=== PATIENT | female | born 1985 | race Caucasian/White ===

== ENCOUNTER → 2017-07-06 | Outpatient (CLI) | payer OTHER ==
[~2017-07-06] MED LIST: KFL/250 PO
[2017-07-06 14:20] LABS: MANUAL MICROSCOPIC REQUIRED? NO; REVIEW REQ? NO; URINE APPEARANCE CLEAR (CLEAR); URINE BILIRUBIN NEG (NEG); URINE COLOR YELLOW; URINE EPITHELIAL CELL AUTO >30 /lpf (0-5); URINE NITRITE NEG (NEG); URINE PH 5.5 (4.5-7.5); URINE SPECIFIC GRAVITY 1.024 (1.000-1.030); UROBILINOGEN NEG (NEG)
== END | disposition home or self-care (01) ==
LOC: C.LABSPEC 13:37 → MERGE 13:37
PROVIDERS: ATTEND Obstetrics & Gynecology
DX: Z34.81 Encounter for supervision of other normal pregnancy, first trimester (principal)

== ENCOUNTER → 2017-07-08 | Outpatient (CLI) | payer OTHER ==
[2017-07-08 10:11] LABS: BASO % 0.3 %; BASO ABS # 0.02 K/uL (0-0.2); COMPLETE YES; EOS % 1.3 %; HEMATOCRIT 37.2 % (37-47); IG% 0.4 %; LYMPH % 24.2 %; MEAN CELL VOLUME 88.2 fL (80-100); MEAN CORPUSCULAR HGB CONC 35.2 g/dl (32-36); MEAN PLATELET VOLUME 9.1 fL (7.4-10.4); MONO % 8.8 %; PLATELET COUNT 300 K/uL (130-400); RED BLOOD COUNT 4.22 M/uL (4.2-5.4); WHITE BLOOD COUNT 7.85 K/uL (4.8-10.8)
== END | disposition home or self-care (01) ==
LOC: MERGE 09:01 → C.LAB1850 09:01
PROVIDERS: ATTEND Obstetrics & Gynecology
DX: Z34.81 Encounter for supervision of other normal pregnancy, first trimester (principal); Z3A.00 Weeks of gestation of pregnancy not specified

== ENCOUNTER → 2017-08-10 | Outpatient (CLI) | payer OTHER ==
[2017-08-10 12:03] LABS: GTGD 50 Grams
== END | disposition home or self-care (01) ==
LOC: C.LAB1850 09:11
PROVIDERS: ATTEND Obstetrics & Gynecology
DX: Z34.82 Encounter for supervision of other normal pregnancy, second trimester (principal)

== ENCOUNTER → 2017-11-01 | Outpatient (CLI) | payer BC, OTHER ==
[2017-11-01 18:13] LABS: HEMATOCRIT 37.1 % (37-47); HEMOGLOBIN 12.9 g/dL (12.0-16.0)
== END | disposition home or self-care (01) ==
LOC: C.LAB1850 17:45
PROVIDERS: ATTEND Obstetrics & Gynecology
DX: Z34.83 Encounter for supervision of other normal pregnancy, third trimester (principal)

== ENCOUNTER → 2017-11-01 | Outpatient (CLI) | payer BC | END | disposition home or self-care (01) | LOC: C.LABSPEC 18:02 | PROVIDERS: ATTEND Obstetrics & Gynecology | DX: Z34.83 Encounter for supervision of other normal pregnancy, third trimester (principal) ==

== ENCOUNTER → 2017-12-30 | Outpatient (CLI) | payer BC | END | disposition home or self-care (01) | LOC: C.LABSPEC 17:27 | PROVIDERS: ATTEND Obstetrics & Gynecology | DX: Z34.83 Encounter for supervision of other normal pregnancy, third trimester (principal) ==

== ENCOUNTER 2018-01-28 16:25 | Inpatient (IN) | payer BC ==
[~2018-01-28] VITALS: Ht 165.1 cm; Wt 94.5 kg
[2018-01-28] MEDS ORDERED: LACTATED RINGER'S 1000ML 1,000 ML IV SCH (16:40)
[2018-01-28] MEDS ORDERED: LACTATED RINGER'S 1000ML 1,000 ML IV PRN (16:40)
[2018-01-28] MEDS ORDERED: BUPIVACAINE 0.25% 30 ML VIAL ONE (16:54)
[2018-01-28] MEDS ORDERED: EpHEDrine SULFATE INJ 50 MG/ML AMP ONE (16:54)
[2018-01-28] MEDS ORDERED: FENTANYL 2MCG/ML ROPIV 1.25MG/ML 100ML BAG ONE (16:55)
[2018-01-28] MEDS ORDERED: FENTANYL CITRATE INJ 50 MCG/1 ML 2 ML VIAL ONE (16:55)
[2018-01-28 17:00] LABS: HEMATOCRIT 34.4 % (37-47); MEAN CORPUSCULAR HEMOGLOBIN 32.1 pg (25-34); MEAN CORPUSCULAR HGB CONC 34.9 g/dl (32-36); MEAN PLATELET VOLUME 10.2 fL (7.4-10.4); PLATELET COUNT 251 K/uL (130-400); RED CELL DISTRIBUTION WIDTH SD 40.6 fL (36.4-46.3); WHITE BLOOD COUNT 10.16 K/uL (4.8-10.8)
[2018-01-28 17:10] VITALS: Ht 165.1 cm; Wt 94.5 kg
[2018-01-28] MEDS ORDERED: PRENTAB26 PO (17:10)
[2018-01-28] MEDS ORDERED: LACTATED RINGER'S 1000ML 500 ML IV PRN (17:46)
[2018-01-28] MEDS ORDERED: NALOXONE HCL INJ 1 MG in SODIUM CHLORIDE 0.9% 1000ML 1,000 ML IV PRN (17:46)
[2018-01-28] MEDS ORDERED: DiphenhydrAMINE HCL 50 MG/ML VIAL IV PRN (18:00)
[2018-01-28] MEDS ORDERED: FENTANYL 2MCG/ML ROPIV 1.25MG/ML 100ML BAG EPI PRN (18:00)
[2018-01-28] MEDS ORDERED: NALOXONE HCL INJ 0.4 MG/1 ML VIAL/CARP IV PRN (18:00)
[2018-01-28] MEDS ORDERED: NALBUPHINE HCL INJ 10 MG/ML AMP IV PRN (18:00)
[2018-01-28] MEDS ORDERED: ONDANSETRON INJ 2 MG/ML 2 ML VIAL IV PRN (18:00)
[2018-01-28] MEDS ORDERED: EpHEDrine SULFATE INJ 50 MG/ML AMP IV PRN (18:00)
[2018-01-28] MEDS ORDERED: OXYTOCIN 30 UNITS/500ML NSS IV ONE (18:56)
[2018-01-28] MEDS ORDERED: OXYTOCIN INJ 20 UNITS in LACTATED RINGER'S 1000ML 1,000 ML IV SCH (19:11)
[2018-01-28] MEDS ORDERED: OXYCODONE/ACETAMINOPHEN 5-325 TAB PO PRN (19:15)
[2018-01-28] MEDS ORDERED: BENZOCAINE 20% AER SPR 82.5 GM CAN EXT PRN (19:15)
[2018-01-28] MEDS ORDERED: OXYTOCIN 30 UNITS/500ML NSS IV PRN (19:15)
[2018-01-28] MEDS ORDERED: DIPHTHERIA/TETANUS/PERTUSSIS 0.5 ML SYR/VIAL IM. ONE (19:15)
[2018-01-28] MEDS ORDERED: SUPERCREAM 0.870 % 15GM JAR EXT PRN (19:15)
[2018-01-28] MEDS ORDERED: ACETAMINOPHEN 325 MG TAB PO PRN (19:15)
[2018-01-28] MEDS ORDERED: HYDROCORTISONE ACETATE 25 MG SUPP PR PRN (19:15)
[2018-01-28] MEDS ORDERED: LANOLIN OINT EXT PRN (19:15)
--- NOTE | 2018-01-28 19:36 | DELIVERY SUMMARY ---
DATE OF OPERATION: 01/28/2018 The patient dilated to complete and pushed to deliver a viable female infant. Apgars 8 and 9 via over second degree perineal laceration. Mild shoulder dystocia was encountered that was relieved with Yonathan maneuvers and effective maternal expulsive efforts. Mouth and nose were bulb suctioned at the perineum and the remainder of the shoulders and body were then delivered with further maternal expulsive efforts. The was vigorous and crying at . The cord was clamped at 30 seconds of life and the infant was placed in the maternal abdomen where the cord was then doubly clamped and cut. The placenta was delivered spontaneously and intact 3-vessel cord. Hemostasis was achieved with dilute Pitocin as well as uterine massage. Cervix and sulci were intact. EBL 300 mL. Laceration repaired in usual fashion using 3-0 Vicryl. Mother and baby stable in recovery. I attest to the content of the Intraoperative Record and any orders documented therein. Any exceptions are noted below. MTDD
--- NOTE | 2018-01-28 20:22 | Anesthesia Procedure Note ---
Anesthesia Epidural Removal Nt Date & Time January 28, 2018 at 20:22 Notes Mental Status: alert / awake / arousable, participated in evaluation Nausea / Vomiting: adequately controlled Pain: adequately controlled Airway Patency, RR, SpO2: stable & adequate BP & HR: stable & adequate Hydration State: stable & adequate Neuraxial Anesthesia: was administered Anesthetic Complications: no major complications apparent, pt satisfied with anesthetic care Epidural: removed without complications, with tip intact
[2018-01-28 22:00] VITALS: BP 105/63; PULSE 76; TEMP 36.5; O2SAT 97
[2018-01-28] MEDS: IBUPROFEN 600 MG TAB PO PRN (22:16)
[2018-01-29 00:05] VITALS: BP 109/67; PULSE 59; TEMP 36.7
[2018-01-29 04:15] VITALS: BP 118/71; PULSE 88; TEMP 36.4
[2018-01-29] MEDS: IBUPROFEN 600 MG TAB PO PRN ×5 (04:49→22:34)
--- NOTE | 2018-01-29 06:41 | Progress Note ---
Subjective January 29, 2018. Subjective conversation w/ patient, physical exam Ambulation: ambulating normally Voiding: no voiding problems Diet Tolerance: Regular Diet Lochia: Small Feeding Type: Breast Feeding Pain: no pain issues Objective Vital Signs Date Time Temp Pulse Resp B/P (MAP) Pulse Ox O2 Delivery O2 Flow Rate FiO2 01/29/18 04:15 36.4 88 18 118/71 (87) Room Air 01/29/18 00:05 36.7 59 18 109/67 (81) Room Air 01/29/18 00:05 Room Air 01/28/18 22:00 97 Room Air 01/28/18 22:00 36.5 76 20 105/63 (77) 97 Room Air Physical Exam General Appearance: WELL-APPEARING, WD/WN, NO APPARENT DISTRESS Respiratory/Chest: lungs clear Cardiovascular: regular rate, rhythm Abdomen: non tender, soft Fundus: Firm, Relation to Umbilicus (2 down) Extremities: non-tender Laboratory Results Last 24 Hours Test 01/28/18 16:50 01/29/18 04:44 White Blood Count 10.16 K/uL Red Blood Count 3.74 M/uL Hemoglobin 12.0 g/dL Hematocrit 34.4 % Mean Corpuscular Volume 92.0 fL Mean Corpuscular Hemoglobin 32.1 pg Mean Corpuscular Hemoglobin Concent 34.9 g/dl RDW Standard Deviation 40.6 fL RDW Coefficient of Variation 12.0 % Platelet Count 251 K/uL Mean Platelet Volume 10.2 fL Assessment and Plan Post- Day#: 1 Continue Routine Care: stable routine care. instructions reviewed.
--- NOTE | 2018-01-29 06:42 | Discharge Instructions ---
Discharge Instructions Date of Service January 29, 2018. Admission Reason for Admission: Check Labor Discharge Discharge Diagnosis / Problem: after surgery Discharge Goals Goal(s): Routine recovery after delivery Medications Continue Dispensed Medications: supercream, dermaplast, tucks, inhaler, lansinoh Activity Recommendations Activity Limitations: as noted below . Instructions / Follow-Up Instructions / Follow-Up ACTIVITY RECOMMENDATIONS: * Gradual return to full activity over the next 2-3 weeks. * No lifting - nothing heavier than baby over the next 2-3 weeks. * Do not engage in vigorous exercise, sexual activity or sports until cleared by your physician. * Do not drive or operate any motorized equipment until cleared by your physician. * You may shower/bathe daily. MEDICATIONS: For discomfort or pain, you may use Acetaminophen (Tylenol), Ibuprofen (Advil), or Naproxen (Aleve) following the package directions. For constipation you may use Colace following the package directions. BREAST CARE: If you are not breast feeding: * Wear a supportive bra 24 hours a day for one to two weeks. * Avoid stimulating your breasts and nipples as much as possible during the first few weeks after delivery. * When taking a shower, have the warm water hit your back, not breasts. * When your breasts feel full, apply ice packs. Usually three to four times a day helps ease the discomfort. * Take a mild pain medication (Tylenol / Motrin) when you are uncomfortable. If breast feeding: * Use breast milk to lubricate nipples. Lansinoh cream may be used for sore nipples. You do not need to remove cream prior to breast feeding. If using a different brand of cream, check the label for directions regarding removal of cream prior to nursing. * Wear a supportive bra. * If having problems with breasts or breast feeding, call a computer systems consultant or your health care provider. EPISIOTOMY CARE: After delivery, if you have an episiotomy (stitches), the following steps will ease discomfort and aid healing. * For the first 24 hours after delivery, place ice packs next to your episiotomy to help reduce swelling. * After the first 24 hour-period, sitz baths, either portable or in the tub, are suggested. A shower with a shower arm sprayed over the episiotomy may be comforting. * Lana care should be done after each voiding and bowel movement. Squirt warm water from a plastic bottle over the perineum (region of the body between the anus and urinary opening) and pat dry. * Use Dermoplast to ease discomfort. Shake container. [place] directly over the episiotomy. Place a Tucks on a clean sanitary pad next to your episiotomy. SPECIAL CARE INSTRUCTIONS: When you are discharged from the hospital, it is important for you to follow the instructions listed below: * During the first week at home, you should be able to care for yourself and your baby. In addition, the usual light household activities are encouraged. * Limit your activities to the way you feel. Do not try to clean the house or move furniture. Be sensible. * If you actively engage in sports and have done so up until the time of your delivery, you may resume these activities as soon as you feel able. This may take up to one month or even longer. Use good judgment. * Continue to take your vitamins for at least six weeks after the of your baby. * Your diet need not be limited unless you were on a special diet before your delivery. Breast-feeding mothers need around 2500 calories per day and at least 64-80 ounces of fluid per day (8 to 10 glasses). * You should eat foods from the four major food groups. Crash diets or fad diets are to be avoided. Eating lean meats, fresh fruits and vegetables, low-fat dairy products, high fiber foods and a regular exercise program, will help you get back to your pre- weight without putting your health at risk. * Constipation is sometimes a problem after delivery. Take a mild laxative as needed. If breast feeding, Milk of Magnesia is acceptable to use. You may use a suppository or Fleets enema if no episiotomy. * A daily shower or tub bath is suggested. Be sure to thoroughly and gently dry the perineum. * A bloody vaginal discharge will usually continue until around four weeks post . A small amount of bleeding may continue for as long as six weeks. Vaginal discharge changes from the bright red bleeding after delivery to pink then brownish and finally yellowish-pink before becoming white and disappearing. * Bleeding may increase with activity. Your first period may come in 4-8 weeks. If you are breast feeding, your period may be delayed even longer. * Dalton (sex) can begin whenever both you and your partner feel comfortable and do not have any form of genital infection. It is recommended that you wait at least six weeks for internal and external healing to occur. If you have questions, please talk to your health care practitioner. A condom should be used to prevent infection and . * Foreplay, gentle intercourse and lubrication is very important the first several times to prevent pain. A water-based lubricant such as K-Y jelly or Astroglide may be used. * If you have RH negative blood and your baby is RH positive, you will receive RHOGAM by injection prior to discharge. The nurse will give you a card to keep with you that has the date and place that you received RHOGAM after delivery. * During your care, you had a Rubella screen done to check for the presence of rubella antibodies in your blood. If your test was negative, you will receive a Rubella vaccine prior to discharge. This vaccine may cause a fever, soreness at the injection site and flu-like symptoms. If these symptoms persist, notify your health care practitioner. is not advised for one month after a Rubella vaccine. * Verbalizes understanding of car seat law as reviewed with patient nursing. * Car Seat hand-out given and reviewed with patient by nursing. * Shaken baby information reviewed with patient by nursing. Call you doctor if: * Heavy bleeding (saturating several pads an hour) or passing clots the size of your fist. * A fever >101 degrees F (38.3 degrees C) on two occasions four hours apart and /or chills. * Unusual pain in the pelvic or vaginal areas. * "Baby Blues" lasting longer than two weeks. If you have any questions or concerns, call your health care practitioner at . FOLLOW UP VISIT: * Please call the office at to schedule a 6 week examination. It is important you keep this appointment. It is important for you to make arrangements for either yearly or twice yearly check-ups thereafter. Current Hospital Diet Patient's current hospital diet: Regular OB Diet Discharge Diet Recommended Diet: Regular Diet Pending Studies Studies pending at discharge: no Medical Emergencies . Who to Call and When: Medical Emergencies: If at any time you feel your situation is an emergency, please call [phone] immediately. . Non-Emergent Contact Non-Emergency issues call your: [employer] . . "Provider Documentation" section prepared by Ashanti Lomeli. .
[2018-01-29 07:04] LABS: HEMATOCRIT 32.1 % (37-47)
[2018-01-29] MEDS: DOCUSATE SODIUM 100 MG CAP PO SCH ×2 (07:56→19:28)
[2018-01-29 08:00] VITALS: BP 102/66; PULSE 86; TEMP 36.5
[2018-01-29 13:20] VITALS: BP 101/65; PULSE 78; TEMP 36.5
[2018-01-29 16:00] VITALS: BP 97/63; PULSE 86; TEMP 36.7
[2018-01-29 23:15] VITALS: BP 112/71; PULSE 69; TEMP 36.6; O2SAT 97
[2018-01-30] MEDS: DOCUSATE SODIUM 100 MG CAP PO SCH (08:22)
[2018-01-30] MEDS: IBUPROFEN 600 MG TAB PO PRN (08:25)
--- NOTE | 2018-01-30 08:53 | Progress Note ---
Subjective January 30, 2018. Subjective conversation w/ patient, physical exam, lab review Ambulation: ambulating normally Voiding: no voiding problems Passing Gas: Yes Diet Tolerance: Regular Diet Lochia: Small Feeding Type: Breast Feeding Pain: controlled Objective Vital Signs Date Time Temp Pulse Resp B/P (MAP) Pulse Ox O2 Delivery O2 Flow Rate FiO2 01/29/18 23:15 36.6 69 16 112/71 (85) 97 Room Air 01/29/18 23:15 97 Room Air 01/29/18 16:00 36.7 86 20 97/63 (74) 01/29/18 13:20 36.5 78 20 101/65 (77) Physical Exam General Appearance: WELL-APPEARING, WD/WN, NO APPARENT DISTRESS Abdomen: normal bowel sounds, non tender Fundus: Firm, Non-Tender, Relation to Umbilicus (at u) Extremities: non-tender, normal inspection Assessment and Plan Post- Day#: 2 Continue Routine Care: Doing well. Plan d/c. Instructions given.
[2018-01-30 09:00] VITALS: BP 101/61; PULSE 71; TEMP 36.3
[2018-01-30 11:05] VITALS: BP_DIAS 61; PULSE 71; TEMP 36.3
== END 2018-01-30 11:05 | disposition home or self-care (01) | DRG 775 ==
LOC: C.LD 16:25 → C.OPB 16:25 → C.LD 16:39 → C.OBG 22:19
PROVIDERS: ADMIT Obstetrics & Gynecology; ATTEND Obstetrics & Gynecology
PROC: 0KQM0ZZ Repair Perineum Muscle, Open Approach (ICD-10-PCS; principal; 2018-01-28)
PROC: 10E0XZZ Delivery of Products of Conception, External Approach (ICD-10-PCS; principal; 2018-01-28)
DX: O70.1 Second degree perineal laceration during delivery (principal); O66.0 Obstructed labor due to shoulder dystocia; Z3A.40 40 weeks gestation of pregnancy; Z37.0 Single live birth

== ENCOUNTER 2020-06-15 06:04 | Inpatient (IN) ==
[2020-06-15] MEDS ORDERED: OXYTOCIN 30 UNITS/500 ML BAG IV PRN ×3 (06:39→11:31)
[2020-06-15 07:15] LABS: Hematocrit (blood only) 37.4 % (37-47); Hemoglobin 13.1 g/dL (12.0-16.0); Mean Corpuscular Hemoglobin 32.9 pg (25-34); Mean Platelet Volume 10.3 fL (7.4-10.4); Platelet Count 219 K/uL (130-400); RDW Coefficient of Variation 11.8 % (11.5-14.5); Red Blood Count 3.98 M/uL (4.2-5.4); White Blood Count 11.09 K/uL (4.8-10.8)
[2020-06-15] MEDS: LACTATED RINGER'S 1,000 ML IV PRN ×2 (07:15→09:23)
[2020-06-15] MEDS ORDERED: fentaNYL citrate 100 MCG/2 ML VIAL ONE (07:19)
[2020-06-15] MEDS ORDERED: ePHEDrine sulfate 50 MG/ML AMP ONE (07:19)
[2020-06-15] MEDS ORDERED: BUPIVACAINE 0.25% 30 ML VIAL ONE (07:19)
[2020-06-15] MEDS ORDERED: fentaNYL 2MCG/ML ROPIV 1.25MG/ML 100 ML BAG EPI ONE (07:20)
--- NOTE | 2020-06-15 07:33 | Anesthesiology Consultation ---
Date of Service June 15, 2020 Assessment & Plan (1) Encounter for pre-operative examination: Chart Review Chart Review: Acceptable Risk for Labor Epidural Consults Requested none ASA ASA2 Proposed Anesthesia Anesthesia Type: Labor Epidural Risk / Benefits Reviewed With: PT / POA / Parent / Guardian, Accepts Plan and Informed Consent Obtained History Height/Weight Height: 5 ft 5 in Weight: 92.986 kg Allergies Allergy/AdvReac Type Severity Reaction Status Date / Time No Known Drug Allergies Allergy Unknown Verified 06/15/20 06:15 Medications Home Medications Medication Instructions Recorded Confirmed Last Taken prenat.vits,veronica,[id number] 1 tab PO DAILY 11/01/19 06/15/20 Unknown Active Medications Generic Name Dose Route Start Last Admin Trade Name Freq PRN Reason Stop Dose Admin Lactated Ringer's 1,000 mls @ 125 mls/hr 06/15/20 06:39 06/15/20 07:15 Lr IV 06/17/20 06:38 999 mls/hr .Q8H PRN Administration L&D Protocol Protocol Past Medical History Medical History Anxiety Encounter for anatomic survey History of chicken pox History of delivery of macrosomal infant No pertinent family history Spontaneous vaginal delivery 10/26/2016, 01/28/2018 Exercise / Class Metabolic Activity II 4-5 Yardwork/Stairs/Walk up hill Past Family History Family History Grandmother (Maternal) Uterine cancer Other No pertinent family history Denies family history of Ovarian cancer Prostate cancer Myocardial infarction Breast cancer Colorectal cancer Past Surgical History Surgical History H/O oral surgery S/P LASIK surgery Past Anesthesia History No Hx of Anesthesia Complications and No Family Hx of Anesthesia Complications History of PONV No Hx of PONV and No Hx of Motion Sickness Social History Smoking Status: Never smoker Hx Alcohol Use: Yes Hx Substance Use: No Physical Exam Vital Signs Last Vital Signs Temp 98.6 F 06/15/20 06:17 Pulse 77 06/15/20 07:27 Resp 18 06/15/20 06:17 BP 128/77 06/15/20 06:13 Pulse Ox 98 06/15/20 07:27 ENMT Mouth: no dentition abnormality Thyromental Distance: > or= 3.5 Finger Breadths Mallampati Class: II Neck normal visual inspection Respiratory normal respiratory effort Auscultation: lungs clear to auscultation bilaterally Cardiovascular Rate/Rhythm: regular rate and regular rhythm Testing Laboratory Results 06/15/20 07:02
[2020-06-15] MEDS ORDERED: ePHEDrine sulfate 50 MG/ML AMP IV PRN (07:54)
[2020-06-15] MEDS ORDERED: ONDANSETRON INJ 2 MG/ML 2 ML VIAL IV PRN (07:54)
[2020-06-15] MEDS ORDERED: NALOXONE HCL 1 MG in SODIUM CHLORIDE 0.9% 1000ML 1,000 ML IV PRN (07:54)
[2020-06-15] MEDS ORDERED: NALOXONE HCL 0.4 MG/1 ML VIAL/CARP IV PRN (07:54)
[2020-06-15] MEDS ORDERED: fentaNYL 2MCG/ML ROPIV 1.25MG/ML 100 ML BAG EPI PRN (07:54)
[2020-06-15] MEDS ORDERED: DiphenhydrAMINE HCL 50 MG/ML VIAL IV PRN (07:54)
--- NOTE | 2020-06-15 08:47 | History & Physical Report ---
Date of Service June 15, 2020 Assessment & Plan (1) Prolonged , antepartum: (2) History of delivery of macrosomal : pt is admitted. has epidural. will see how arom helps her labor pattern, if needed will add pitocin. fhts categ 1. Admission and Anticipated Discharge Date Admission Date: June 15, 2020 History of Present Illness Chief Complaint: labor Primary Care Provider: Cookie Phelan PA-C 34yo at 40+wks ega presents to L&D with painful contractions. Pateint denies rom, no vb. Notes membranes stripped yesterday in office and ctx intensified overnight. On arrival to L&D was 5cm and requesting epidural. Contractions only q8min. She notes h/o macrosomia with last child but does feel this baby is smaller. Had efw at 36wks at 59%. She would like to proceed with attempted vaginal delivery. PNC c/b 1. prior macrosomia 2. prolonged PNL Apos, RI All Active Problems (Updated 06/15/20 @ 07:33 by Yuriy Pineda DO) Encounter for pre-operative examination Encounter for supervision of normal in multigravida Facial rash Prolonged , antepartum History of delivery of macrosomal Anxiety (Acute) Allergies Allergy/AdvReac Type Severity Reaction Status Date / Time No Known Drug Allergies Allergy Unknown Verified 06/15/20 06:15 Home Medications Home Medications Medication Instructions Recorded Confirmed Type prenat.vits,veronica,[id number] 1 tab PO DAILY 11/01/19 06/15/20 History Patient History Medical History Anxiety Encounter for anatomic survey History of chicken pox History of delivery of macrosomal infant No pertinent family history Spontaneous vaginal delivery 10/26/2016, 01/28/2018 Surgical History H/O oral surgery S/P LASIK surgery Family History Grandmother (Maternal) Uterine cancer Other No pertinent family history Denies family history of Ovarian cancer Prostate cancer Myocardial infarction Breast cancer Colorectal cancer Social History Smoking Status: Never smoker Hx Alcohol Use: Yes Hx Substance Use: No Preferred Language: Telugu Communication Ability: Effective Visual Impairment: No Limitations Hearing Ability: Normal Braille Proofreader Required: No Beliefs That Will Affect Care: None marital status: marital status details: Yuriy Galarza (33) [phone] Current Living Situation: Spouse Current Living Situation Comment: house with and kids current occupational status: employed current occupation: [employer] Other Information That Helps Us Care for You: No Feels Safe at Home: Yes Safety Concerns: Feels Safe At This Time Childhood Exposure to Second-Hand Smoke: No Dental Care, Regularly: Yes Physical Activity Frequency: 1-2 Times per Week Seatbelt Use: always Assistive Devices: None Review of Systems see hpi Physical Exam Constitutional: WD/WN, vitals as above Respiratory: normal respiratory effort, lungs clear to auscultation Cardiovascular: Rate/Rhythm: regular rate and regular rhythm Gastrointestinal (Abdomen): Percussion/Palpation: abdomen soft; abdomen nontender Musculoskeletal: non tender calves. no edema Neurologic: grossly normal Psychiatric: A+Ox3, euthymic affect Genitourinary: Manual OB Exam: + cervical dilation (6), + cervical effacement (80), + station high and + amniotic fluid (AROM) clear OB Exam Monitor Tracing: + external FHT monitor used (125 mod variability), + external uterine monitor used (q8), + category I and + normal FHT variability Results & Data ([facility]) Vital Signs (Past 12 Hours) Vital Signs Temp Pulse Resp BP Pulse Ox 06/15/20 08:40 97.9 F 18 06/15/20 08:37 86 97 06/15/20 08:34 87 107/71 06/15/20 08:32 79 99 06/15/20 08:27 78 97 06/15/20 08:23 72 109/62 06/15/20 08:22 84 97 06/15/20 08:17 72 95 06/15/20 08:16 74 94 06/15/20 08:12 73 111/77 97 06/15/20 08:10 71 112/75 06/15/20 08:08 74 115/73 06/15/20 08:07 76 97 06/15/20 08:06 76 116/82 06/15/20 08:04 76 110/68 06/15/20 08:02 79 116/69 97 06/15/20 07:58 84 113/76 06/15/20 07:57 84 96 06/15/20 07:56 90 111/73 06/15/20 07:54 88 112/73 06/15/20 07:52 79 112/71 98 06/15/20 07:50 85 125/69 06/15/20 07:47 92 H 98 06/15/20 07:46 85 110/75 06/15/20 07:44 82 111/66 06/15/20 07:42 81 97 06/15/20 07:37 88 98 06/15/20 07:32 81 98 06/15/20 07:27 77 98 06/15/20 06:17 98.6 F 18 06/15/20 06:13 98.6 F 79 18 128/77 Coding Level of Care Code None Diagnoses Prolonged , antepartum O48.1 History of delivery of macrosomal infant Z87.59
--- NOTE | 2020-06-15 11:13 | Delivery Summary ---
Vaginal Delivery Summary Date of Service June 15, 2020 The patient dilated to complete and pushed to deliver a viable female A pgars 9 and 9 via over 2nd degree perineal laceration. Mouth and nose bulb suctioned at perineum. Shoulders and body delivered with ease. Infant was vigorous and crying at . Cord clamped at 30 seconds of life and infant to maternal abdomen where the cord was then doubly clamped and cut. Placenta delivered spontaneously and intact, three-vessel cord. Hemostasis achieved with dilute pitocin and uterine massage and drainage of the bladder for approximately 300 cc under sterile conditions. Laceration repaired in usual fashion with 3-0 vicryl. Cervix and sulci intact. EBL 300 cc. Mother and baby stable recovery. [facility] Vaginal Delivery Charge Vaginal Delivery Codes: 45727 global code for the antepartum, delivery, and p ost-
[2020-06-15] MEDS ORDERED: SUPERCREAM 0.870% 15 GM JAR EXT PRN (11:31)
[2020-06-15] MEDS ORDERED: DIPHTHERIA/TETANUS/PERTUSSIS 0.5 ML SYR/VIAL IM ONE (11:31)
[2020-06-15] MEDS ORDERED: HYDROCORTISONE ACETATE 25 MG SUPP PR PRN (11:31)
[2020-06-15] MEDS ORDERED: OXYTOCIN 20 UNITS in LACTATED RINGER'S 1,000 ML IV SCH (11:31)
[2020-06-15] MEDS ORDERED: ACETAMINOPHEN 325 MG TAB PO PRN (11:31)
[2020-06-15] MEDS ORDERED: OXYCODONE/ACETAMINOPHEN 5mg/325mg TAB PO PRN (11:31)
[2020-06-15] MEDS ORDERED: BENZOCAINE 20% AER SPR 82.5 GM CAN EXT PRN (11:31)
--- NOTE | 2020-06-15 12:07 | Anesthesia Procedure Note ---
Date of Service June 15, 2020 Anesthesia Post Epidural Note Vital Signs Vital Signs: Temp Pulse Resp BP Pulse Ox 97.9 F 72 18 106/69 99 06/15/20 08:40 06/15/20 11:27 06/15/20 08:40 06/15/20 11:27 06/15/20 10:49 Notes Mental Status: alert / awake / arousable and participated in evaluation Nausea / Vomiting: adequately controlled Pain: adequately controlled Airway Patency, RR, SpO2: stable & adequate BP & HR: stable & adequate Hydration State: stable & adequate Neuraxial Anesthesia: was administered and sensory block is resolving Anesthetic Complications: no major complications apparent and Pt Satisfied with anesthetic care Epidural: Removed without complications and With tip intact
[2020-06-15] MEDS: IBUPROFEN 600 MG TAB PO PRN ×2 (16:25→20:36)
[2020-06-15] MEDS: DOCUSATE SODIUM 100 MG CAP PO SCH (20:36)
--- NOTE | 2020-06-15 20:52 | Obstetrical Progress Note ---
Date of Service June 16, 2020 Assessment & Plan (1) : S/p Day 1 - Feels well today. Eating well, voiding well, ambulating well. - Pain well-controlled with ibuprofen 600mg Q4H PRN. - Vital signs reviewed and WNL. - Hemoglobin reviewed. 13.1 pre- - Blood Type: A+, antibody negative, GBS negative, Rubella Immune, COVID-19 negative - Continue routine post- care: encourage ambulation, monitor and control pain with Motrin PRN, continue regular OB diet, monitor lochia - Encourage breast feeding. - Pt counselled on discharge instructions today - After discharge, will have 6-wk follow-up with Dr. Lomeli Admission and Anticipated Discharge Date Admission Date: June 15, 2020 Supervising Physician Co-Signing Physician Notes Resident Physician Supervision Note: I was present with Dr. Frank during the history and exam. I discussed the case with the resident and agree with the findings and plan as documented in the note. Any exceptions or clarifications are listed here: doing well, ready for d/c home, instructions reviewed, f/u 6wk pp check. eating, voiding, ambul without prob. ff 2 down nt, . rh pos, ri. Documented By: Ashanti Lomeli MD, FACOG Subjective HPI Rowena Galarza is a 34 y/o female who is PPD 1 spontaneous vaginal delivery at 40 2/7 weeks. She reports feeling well overall this morning. No abdominal cramping and 0-2/10 pain well managed on analgesics. Voiding well. Tolerating meals overnight without difficulty. Patient has been able to ambulate some. passing gas and no bowel movement. Has persistent lochia with some improvement this morning. Currently . Review of Systems Review of Systems: ROS Denies fever or chills. Denies shortness of breath or cough. Denies chest pain. Denies breast pain. Denies dysuria. Denies leg pain or leg swelling. Physical Exam Physical Exam: PE General: Alert, oriented. No acute distress. Cardiac: Regular rate and rhythm. No murmurs. Respiratory: Clear to auscultation bilaterally a/p, no wheezes/rales/rhonchi. No increased work of breathing. Symmetrical chest rise. No respiratory distress. Abdomen: Soft, nontender, nondistended. Bowel sounds present. Uterus: Uterine fundus firm, palpable at umbilicus. Lower Extremities: No lower extremity edema or swelling. No deep calf pain. Jessica's negative bilaterally. Results & Data ([facility]) Vital Signs (Past 12 Hours) Vital Signs Temp Pulse Pulse Resp BP BP Pulse Ox 06/15/20 19:34 36.8 C 74 18 112/74 06/15/20 15:00 36.7 C 76 20 110/70 06/15/20 14:12 78 104/63 06/15/20 13:57 75 104/63 06/15/20 13:43 75 98/58 L 06/15/20 13:13 85 105/69 06/15/20 12:57 76 106/70 06/15/20 12:42 76 109/72 06/15/20 12:27 82 106/70 06/15/20 12:13 67 110/70 06/15/20 11:27 72 106/69 06/15/20 11:13 70 102/63 06/15/20 10:58 78 116/61 06/15/20 10:49 106 H 99 06/15/20 10:48 105 H 92 06/15/20 10:44 98 H 187/82 H 86 L 06/15/20 10:40 94 H 91 06/15/20 10:39 88 100 06/15/20 10:34 95 H 99 06/15/20 10:30 71 121/81 06/15/20 10:27 78 99 06/15/20 10:22 65 99 06/15/20 10:17 63 97 06/15/20 10:15 65 109/73 06/15/20 10:12 68 98 06/15/20 10:07 66 97 06/15/20 10:02 66 98 06/15/20 09:57 62 98/60 L 95 06/15/20 09:54 59 L 94 06/15/20 09:52 60 94 06/15/20 09:49 62 94 06/15/20 09:47 61 95 06/15/20 09:43 57 L 95/58 L 06/15/20 09:42 58 L 96 06/15/20 09:37 60 96 06/15/20 09:32 65 97 06/15/20 09:30 66 98/61 L 06/15/20 09:27 76 96 06/15/20 09:22 72 98 06/15/20 09:17 68 96 06/15/20 09:15 68 100/56 L 06/15/20 09:12 69 95 06/15/20 09:07 70 94 06/15/20 09:03 66 94 06/15/20 09:02 67 95 06/15/20 08:58 78 102/62 06/15/20 08:57 66 97 06/15/20 08:55 71 94 06/15/20 08:52 70 95 Resident Activity Tracking Resident Involvement: Resident Care Provided Care Provided: OB Delivery
[2020-06-16] MEDS: IBUPROFEN 600 MG TAB PO PRN ×2 (00:14→07:39)
[2020-06-16] MEDS: DOCUSATE SODIUM 100 MG CAP PO SCH (07:39)
[2020-06-16] MEDS ORDERED: PRENATAL VITAMIN 1 TAB PO SCH (08:00)
== END 2020-06-16 12:20 | disposition home or self-care (01) | DRG 807 ==
LOC: OPB 06:04 → 4S1 06:08 → 4S2 15:51

== ENCOUNTER 2022-03-12 07:42 | Inpatient (IN) ==
[2022-03-12] MEDS ORDERED: OXYTOCIN 30 UNITS/500 ML BAG IV PRN ×3 (09:07→15:41)
[2022-03-12 09:59] LABS: Hematocrit (blood only) 37.9 % (37-47); Hemoglobin 13.2 g/dL (12.0-16.0); Mean Corpuscular Hemoglobin 33.2 pg (25-34); Mean Corpuscular Hgb Conc 34.8 g/dL (32-36); Mean Corpuscular Volume 95.5 fL (80-100); Mean Platelet Volume 10.4 fL (7.4-10.4); Platelet Count 250 K/uL (130-400); RDW Coefficient of Variation 12.1 % (11.5-14.5); RDW Standard Deviation 41.6 fL (36.4-46.3); Red Blood Count 3.97 M/uL (4.2-5.4); White Blood Count 8.14 K/uL (4.8-10.8)
[2022-03-12] MEDS: LACTATED RINGER'S 1,000 ML IV PRN ×2 (10:17→11:26)
[2022-03-12] MEDS ORDERED: fentaNYL citrate 100 MCG/2 ML VIAL ONE (10:29)
[2022-03-12] MEDS ORDERED: ePHEDrine sulfate 50 MG/ML AMP ONE (10:29)
[2022-03-12] MEDS ORDERED: SODIUM CHLORIDE 0.9% INJ 10 ML VIAL ONE (10:29)
[2022-03-12] MEDS ORDERED: BUPIVACAINE 0.25% 30 ML VIAL ONE (10:29)
[2022-03-12] MEDS ORDERED: fentaNYL 2MCG/ML ROPIVACAINE 1.25MG/ML 100 ML BAG EPI ONE (10:30)
--- NOTE | 2022-03-12 11:02 | Anesthesiology Consultation ---
Date of Service March 12, 2022 Assessment & Plan (1) Encounter for pre-operative examination: Chart Review Chart Review: Acceptable Risk for Labor Epidural Consults Requested none ASA ASA2 Proposed Anesthesia Anesthesia Type: Labor Epidural Risk / Benefits Reviewed With: PT / POA / Parent / Guardian, Accepts Plan and Informed Consent Obtained History Height/Weight Height: 5 ft 5 in Weight: 99.79 kg Allergies Allergy/AdvReac Type Severity Reaction Status Date / Time No Known Drug Allergies Allergy Unknown Verified 03/11/22 09:20 Medications Home Medications Medication Instructions Recorded Confirmed Last Taken prenat.vits,veronica,[id number] 1 tab PO DAILY 07/23/21 03/12/22 03/12/22 07:00 Active Medications Generic Name Dose Route Start Last Admin Trade Name Freq PRN Reason Stop Dose Admin Lactated Ringer's 1,000 mls @ 125 mls/hr 03/12/22 09:07 03/12/22 10:17 Lr IV 03/14/22 09:06 999 mls/hr .Q8H PRN Administration L&D Protocol Protocol Oxytocin 30 units in 500 mls @ 1 mls/hr 03/12/22 09:07 03/12/22 10:21 Pitocin IV 03/14/22 09:06 0.06 units/hr .Q24H PRN 1 mls/hr Labor Induction/Augmentation Administration Protocol 0.06 UNITS/HR Past Medical History Medical History Anxiety History of chicken pox History of delivery of macrosomal infant Spontaneous vaginal delivery 10/26/2016, 01/28/2018 Exercise / Class Metabolic Activity II 4-5 Yardwork/Stairs/Walk up hill Past Family History Family History Grandmother (Maternal) Uterine cancer Other No pertinent family history Denies family history of Ovarian cancer Prostate cancer Myocardial infarction Breast cancer Colorectal cancer Past Surgical History Surgical History H/O oral surgery S/P LASIK surgery Past Anesthesia History No Hx of Anesthesia Complications and No Family Hx of Anesthesia Complications History of PONV No Hx of PONV and No Hx of Motion Sickness Social History Smoking Status: Never smoker Do You Dip or Chew Tobacco: No Hx Alcohol Use: No Hx Substance Use: No substance use type: does not use Physical Exam Vital Signs Last Vital Signs Temp 98.4 F 03/12/22 08:12 Pulse 88 03/12/22 10:53 Resp 16 03/12/22 08:12 BP 109/72 03/12/22 10:53 ENMT Mouth: no dentition abnormality Thyromental Distance: > or= 3.5 Finger Breadths Mallampati Class: II Neck normal visual inspection Respiratory normal respiratory effort Auscultation: lungs clear to auscultation bilaterally Cardiovascular Rate/Rhythm: regular rate and regular rhythm Testing Laboratory Results 03/12/22 09:32
--- NOTE | 2022-03-12 11:06 | History & Physical Report ---
Date of Service March 12, 2022 Assessment & Plan (1) Encounter for supervision of normal in multigravida: Plan: Admit to L&D. EFM/toco/labs. Will plan for pitocin. Will get epidural prior to AROM. Discussed that there is a possibility of this being a large baby, however she has delivered large babies in the past without problem. Offered option to obtain US for EFW, to consider primary to reduce shoulder dystocia risk, declines. I think this is reasonable given her ability to deliver large babies in the past. Admission and Anticipated Discharge Date Admission Date: March 12, 2022 History of Present Illness Chief Complaint: IOL Primary Care Provider: Cookie Phelan PA-C 36yo @ 40 12/25, here for IOL for postdates. History of large babies 9+ lbs, delivered without complication - states no history of shoulder dystocia. Allergies Allergy/AdvReac Type Severity Reaction Status Date / Time No Known Drug Allergies Allergy Unknown Verified 03/11/22 09:20 Home Medications Medication Instructions Recorded Confirmed Type prenat.vits,veronica,[id number] 1 tab PO DAILY 07/23/21 03/12/22 History Patient History Medical History Anxiety History of chicken pox History of delivery of macrosomal infant Spontaneous vaginal delivery 10/26/2016, 01/28/2018 Surgical History H/O oral surgery S/P LASIK surgery Family History Grandmother (Maternal) Uterine cancer Other No pertinent family history Denies family history of Ovarian cancer Prostate cancer Myocardial infarction Breast cancer Colorectal cancer Social History Smoking Status: Never smoker Second Hand Exposure: No; Do You Dip or Chew Tobacco: No; Tobacco Cessation Education Requested by Patient: No Hx Alcohol Use: No Hx Substance Use: No Preferred Language: [place]al[place] Communication Ability: Effective Visual Impairment: No Limitations Hearing Ability: Normal Speech Language Assistant Required: No Beliefs That Will Affect Care: None marital status: marital status details: Yuriy Geovanni (35) [phone] Current Living Situation: Family Current Living Situation Comment: Lives with and 3 children. current occupational status: employed current occupation: [employer] Feels Safe at Home: Yes Safety Concerns: Feels Safe At This Time Childhood Exposure to Second-Hand Smoke: No Dental Care, Regularly: Yes Physical Activity Frequency: 1-2 Times per Week Seatbelt Use: always Assistive Devices: None Review of Systems All systems reviewed & are unremarkable except as noted in HPI & below Physical Exam Physical Exam: FHT Cat 1 [place] rare SVE 4/70/-3/soft/mid. EFW 8-9 Constitutional: WD/WN, vitals as above Respiratory: normal respiratory effort, lungs clear to auscultation no respiratory distress Cardiovascular: Rate/Rhythm: regular rate and regular rhythm Gastrointestinal (Abdomen): Inspection/Auscultation: abdomen normal to inspection Percussion/Palpation: abdomen soft; abdomen nontender Gravid. No s/s chorio or abruption. Skin: no rashes, warm and dry Psychiatric: A+Ox3, euthymic affect Results & Data ([facility]) Vital Signs (Past 12 Hours) Vital Signs Temp Pulse Resp BP Pulse Ox 03/12/22 11:04 77 111/71 03/12/22 11:00 94 H 95 03/12/22 10:53 88 109/72 03/12/22 10:33 85 109/65 03/12/22 08:18 90 107/69 03/12/22 08:12 36.9 C 90 16 107/69 Coding Level of Care Code None Diagnoses Encounter for supervision of normal in multigravida Z34.80
[2022-03-12] MEDS ORDERED: diphenhydrAMINE 50 MG/ML VIAL IV PRN (11:19)
[2022-03-12] MEDS ORDERED: NALOXONE HCL 0.4 MG/1 ML VIAL/CARP IV PRN (11:19)
[2022-03-12] MEDS ORDERED: ONDANSETRON INJ 2 MG/ML 2 ML VIAL IV PRN (11:19)
[2022-03-12] MEDS ORDERED: NALBUPHINE HCL INJ 10 MG/ML AMP IV PRN (11:19)
[2022-03-12] MEDS ORDERED: ePHEDrine sulfate 50 MG/ML AMP IV PRN (11:19)
[2022-03-12] MEDS ORDERED: NALOXONE HCL 1 MG in SODIUM CHLORIDE 0.9% 1000ML 1,000 ML IV PRN (11:19)
[2022-03-12] MEDS ORDERED: fentaNYL 2MCG/ML ROPIVACAINE 1.25MG/ML 100 ML BAG EPI PRN (11:19)
[2022-03-12] MEDS ORDERED: NURSING L&D Epidural Breakthrough Pain Update ONE (14:51)
--- NOTE | 2022-03-12 14:54 | Labor Progress Brief Note ---
Date of Service March 12, 2022 Subjective Comfortable with epidural. Cervix 6-7/80/-1 SROM during exam - clear fluid. FHT Cat 1 [place] Q 2 Continue pitocin, anticipate . Assessment & Plan Admission and Anticipated Discharge Date Admission Date: March 12, 2022 Results & Data ([facility]) Vital Signs (Past 12 Hours) Vital Signs Temp Pulse Resp BP Pulse Ox 03/12/22 14:50 75 99 03/12/22 14:45 72 100 03/12/22 14:44 80 103/65 03/12/22 14:40 60 97 03/12/22 14:35 70 99 03/12/22 14:30 65 100 03/12/22 14:29 76 109/62 03/12/22 14:25 80 100 03/12/22 14:20 69 98 03/12/22 14:15 66 98 03/12/22 14:14 63 100/62 03/12/22 14:10 69 98 03/12/22 14:05 72 97 03/12/22 14:00 80 97 03/12/22 13:57 62 116/59 L 03/12/22 13:55 74 99 03/12/22 13:50 74 100 03/12/22 13:45 76 98 03/12/22 13:40 77 98 03/12/22 13:35 72 98 03/12/22 13:30 66 99 03/12/22 13:25 72 99 03/12/22 13:20 75 98 03/12/22 13:15 76 98 03/12/22 13:10 75 100 03/12/22 13:05 72 100 03/12/22 13:00 69 96 03/12/22 12:59 68 93 03/12/22 12:55 83 98 03/12/22 12:50 66 97 03/12/22 12:45 72 98 03/12/22 12:40 78 98 03/12/22 12:35 81 98 03/12/22 12:30 73 97 03/12/22 12:29 67 106/65 03/12/22 12:25 70 96 03/12/22 12:20 73 95 03/12/22 12:19 79 94 03/12/22 12:15 87 96 03/12/22 12:13 90 101/64 03/12/22 12:10 72 96 06/23/22 12:05 89 98 03/12/22 12:00 80 97 03/12/22 11:58 89 101/68 03/12/22 11:56 77 93 03/12/22 11:55 79 97 03/12/22 11:50 90 97 03/12/22 11:45 76 98 03/12/22 11:43 72 104/67 03/12/22 11:40 76 97 03/12/22 11:35 84 98 03/12/22 11:30 109 H 99 03/12/22 11:27 103 H 114/77 03/12/22 11:25 105 H 99 03/12/22 11:23 90 107/59 L 03/12/22 11:20 107 H 109/57 L 98 03/12/22 11:18 102 H 110/62 03/12/22 11:16 89 03/12/22 11:15 91 H 98 03/12/22 11:14 84 111/74 03/12/22 11:10 86 94 03/12/22 11:07 89 107/69 03/12/22 11:05 87 98 03/12/22 11:04 77 111/71 03/12/22 11:00 94 H 95 03/12/22 10:53 88 109/72 03/12/22 10:33 85 109/65 03/12/22 08:18 90 107/69 03/12/22 08:12 36.9 C 90 16 107/69 Coding Level of Care Code None
[2022-03-12] MEDS ORDERED: bisacodyL 10 MG SUPP PR PRN (15:41)
[2022-03-12] MEDS ORDERED: ACETAMINOPHEN 325 MG TAB PO PRN (15:41)
[2022-03-12] MEDS ORDERED: DIPHTHERIA/TETANUS/PERTUSSIS 0.5 ML SYR/VIAL IM ONE (15:41)
[2022-03-12] MEDS ORDERED: BENZOCAINE 20% AER SPR 82.5 GM CAN EXT PRN (15:41)
[2022-03-12] MEDS ORDERED: HYDROCORTISONE ACETATE 25 MG SUPP PR PRN (15:41)
[2022-03-12] MEDS ORDERED: LACTATED RINGER'S 1,000 ML IV SCH (15:45)
--- NOTE | 2022-03-12 16:06 | Delivery Summary ---
Vaginal Delivery Summary Date of Service March 12, 2022 Vaginal Delivery Summary Vaginal Delivery Summary: Pre-delivery diagnoses: 36yo @ 40 4/7, postdates IOL Post-delivery diagnoses: same Procedure: spontaneous vaginal delivery Surgeon: Elma Horne DO Complications: none Findings: Viable male . Apgars: 8/9. Weight pending, please see nursery records Estimated blood loss: 300ml Description of delivery: The patient progressed to complete with epidural anesthesia. She then began to push. She spontaneously vaginally delivered a viable from the cephalic presentation. The head delivered in SHANE position. The anterior shoulder delivered, followed by the posterior shoulder, followed by the body. No nuchal cord. The baby was placed on mother's abdomen and a spontaneous cry was heard. Delayed cord clamping was employed, and the cord was doubly clamped and cut. Cord blood was obtained. The placenta was delivered spontaneously intact with a 3-vessel cord. The uterus and vagina were swept of clots and debris. IV pitocin was given. The uterus became firm. The cervix, vagina, and perineum were inspected and a small first degree perineal laceration was noted, and since it was hemostatic I gave the patient option to l eave to heal on its own- she agreed. Excellent hemostasis was observed. The mother and baby are recovering in stable and good condition in the room. Sponge and instrument counts were correct x 2. Elma Horne DO [facility] Vaginal Delivery Charge Vaginal Delivery Codes: 53829 global code for the antepartum, delivery, and p ost- Delivery Type Details: [facility]
--- NOTE | 2022-03-12 16:15 | Anesthesia Procedure Note ---
Date of Service March 12, 2022 Anesthesia Post Epidural Note Vital Signs Vital Signs: Temp Pulse Resp BP Pulse Ox 36.9 C 71 16 109/59 L 82 L 03/12/22 08:12 03/12/22 15:59 03/12/22 08:12 03/12/22 15:59 03/12/22 15:20 Notes Mental Status: alert / awake / arousable Nausea / Vomiting: adequately controlled Pain: adequately controlled Airway Patency, RR, SpO2: stable & adequate BP & HR: stable & adequate Hydration State: stable & adequate Neuraxial Anesthesia: was administered and sensory block resolved Anesthetic Complications: no major complications apparent and Pt Satisfied with anesthetic care Epidural: Removed without complications and With tip intact
[2022-03-12] MEDS: IBUPROFEN 600 MG TAB PO PRN (21:40)
[2022-03-12] MEDS: DOCUSATE SODIUM 100 MG CAP PO SCH (21:40)
[2022-03-12] MEDS: oxyCODONE/ACETAMINOPHEN 5mg/325mg TAB PO PRN (23:30)
[2022-03-13] MEDS: oxyCODONE/ACETAMINOPHEN 5mg/325mg TAB PO PRN (04:36)
[2022-03-13] MEDS: IBUPROFEN 600 MG TAB PO PRN ×3 (04:37→13:48)
--- NOTE | 2022-03-13 07:00 | Obstetrical Progress Note ---
Date of Service March 13, 2022 Assessment & Plan (1) Encounter for care and examination after delivery: Plan: Patient is a 36-year-old status postnormal spontaneous vaginal delivery day 1. -Continue routine care,D/C today after 24 hours post delivery, discharge instructions reviewed with patient -A+, antibody negative, rubella immune, GBS negative -Encourage breast-feeding -Encouraged ambulation -Tylenol and ibuprofen as needed for pain control -Follow-up OB appointment in [address] Horne Admission and Anticipated Discharge Date Admission Date: March 12, 2022 Supervising Physician Co-Signing Physician Notes Resident Physician Supervision Note: I interviewed and examined the patient. Discussed with Dr. Wang and agree with findings and plan as documented in the note. Any exceptions or clarifications are listed here: PPD#1 doing well. Desires discharge home. Instructions reviewed, followup in office 6w. Desires percocet Rx for pelvic pain control during recovery, as this is helping here at the hospital. Rx #10 tabs sent to pharmacy. Documented By: Elma Horne, DO Subjective Pt is a 36 y/o now female who delivered via at 40 4/7 weeks gestation, PPD1. Pt doing well overall. Pain is currently a 3/10 with percocet. Ambulating around the room slowly and urinating without difficulty. Pt without BM as of yet, but is passing gas. Eating and drinking well. Lochia moderate- large. without difficulty. Denies fever, chills, chest pain, sob, nausea, vomiting, or headache. Pt has no other complaints at this time. Review of Systems Review of Systems: All systems reviewed & are unremarkable except as noted in HPI & below Physical Exam Constitutional: WD/WN, vitals as above Eyes: + anicteric sclerae Neck: trachea midline, no thyromegaly Respiratory: normal respiratory effort, lungs clear to auscultation Cardiovascular: RRR, no murmur, no edema Gastrointestinal (Abdomen): normal bowel sounds, soft, nontender, no hepatosplenomegaly Musculoskeletal: Head/Neck/Chest: normocephalic and head atraumatic Skin: no rashes, warm and dry Neurologic: moves all extremities Psychiatric: A+Ox3, euthymic affect Genitourinary: Uterus palpated at 2 cm below umbilicus, firm. Results & Data ([facility]) Vital Signs (Past 12 Hours) Vital Signs Temp Pulse Resp BP Pulse Ox 03/13/22 04:30 36.4 C L 72 18 100/65 03/12/22 23:13 36.7 C 79 18 114/74 98 03/12/22 19:23 36.6 C 75 18 103/63 98 03/12/22 18:15 37.0 C 80 18 103/67 98
[2022-03-13 07:01] LABS: Hematocrit (blood only) 37.8 % (37-47); Mean Corpuscular Hemoglobin 32.3 pg (25-34); Mean Corpuscular Hgb Conc 34.4 g/dL (32-36); Mean Corpuscular Volume 93.8 fL (80-100); Mean Platelet Volume 10.5 fL (7.4-10.4); Platelet Count 235 K/uL (130-400); RDW Coefficient of Variation 12.2 % (11.5-14.5); RDW Standard Deviation 41.4 fL (36.4-46.3); Red Blood Count 4.03 M/uL (4.2-5.4); White Blood Count 11.39 K/uL (4.8-10.8)
[2022-03-13] MEDS ORDERED: PRENATAL VITAMIN 1 TAB PO SCH (08:00)
[2022-03-13] MEDS: DOCUSATE SODIUM 100 MG CAP PO SCH (08:21)
[2022-03-13] MEDS ORDERED: NON-FORMULARY MEDICATION (Prenat.Vits,Cal,Min-Iron-Folic tablet) PO SCH (09:00)
[2022-03-13] MEDS ORDERED: bisacodyL 5 MG TABEC PO SCH (20:00)
== END 2022-03-13 18:25 | disposition home or self-care (01) | DRG 807 ==
LOC: 4S1 07:42 → 4E2 18:19

== ENCOUNTER 2024-09-02 04:11 | Inpatient (IN) ==
[2024-09-02] MEDS: OXYTOCIN 10 UNITS/ML VIAL IM ONE (04:25)
[2024-09-02] MEDS ORDERED: LIDOCAINE 1% LOCAL 20 ML VIAL INFIL PRN (04:30)
[2024-09-02] MEDS ORDERED: bisacodyL 10 MG SUPP PR PRN (04:34)
[2024-09-02] MEDS ORDERED: OXYTOCIN 10 UNITS/ML 10ML VIAL IM ONE (04:34)
[2024-09-02] MEDS ORDERED: OXYTOCIN 30 UNITS/NSS 30 UNITS/500 ML BAG IV PRN (04:34)
[2024-09-02] MEDS ORDERED: oxyCODONE/ACETAMINOPHEN 5mg/325mg TAB PO PRN (04:34)
[2024-09-02] MEDS ORDERED: HYDROCORTISONE ACETATE 25 MG SUPP PR PRN (04:34)
--- NOTE | 2024-09-02 04:51 | History & Physical Report ---
Date of Service September 02, 2024 Assessment & Plan (1) Precipitate labor, with delivery: Plan: 5 para 4-0-0-4 female presents to labor and delivery and promptly delivered vaginally. Please see delivery note elsewhere. Admission and Anticipated Discharge Date Admission Date: September 02, 2024 History of Present Illness Primary Care Provider: Cookie Phelan PA-C Patient is a 38-year-old 5 para 4-0-0-4 female EDC of 08/31/2024 who presents at 40-2/7 weeks in active labor. complicated by AMA status. testing was reassuring. She woke up at 3:30 AM with contractions every 2 minutes. At 3:50 AM her water broke for clear fluid. She presented to labor and delivery at 4:10 AM and delivered at 4:18 AM. GBS-negative. Allergies Allergy/AdvReac Type Severity Reaction Status Date / Time No Known Drug Allergies Allergy Unknown Verified 08/31/24 08:23 Home Medications Medication Instructions Recorded Confirmed Type [id number]-sps-[id number] PO 01/14/24 08/31/24 History [ Plus] Patient History Medical History (Updated 09/02/24 @ 04:50 by Keyona Sandoval MD, FACOG) Family history of thyroid disease Fatigue Facial rash Anxiety Spontaneous vaginal delivery 10/26/2016, 01/28/2018 History of delivery of macrosomal History of chicken pox Surgical History H/O oral surgery S/P LASIK surgery Family History (Updated 01/14/24 @ 09:02 by Portia Canchola RN) Grandmother (Maternal) Uterine cancer Denies family history of Ovarian cancer Prostate cancer Myocardial infarction Breast cancer Colorectal cancer Social History Smoking Status: Never smoker Second Hand Exposure: No; Do You Dip or Chew Tobacco: No; Hx Alcohol Use: No Hx Substance Use: No Preferred Language: Turkish Communication Ability: Effective Visual Impairment: No Limitations Hearing Ability: Normal Mobility Architect Required: No Beliefs That Will Affect Care: None marital status: marital status details: Yuriy Galarza (38) [phone] Current Living Situation: Spouse and Family Current Living Situation Comment: Lives with and 4 children. current occupational status: unemployed current occupation: homemaker Feels Safe at Home: Yes Childhood Exposure to Second-Hand Smoke: No Dental Care, Regularly: Yes Physical Activity Frequency: 1-2 Times per Week Seatbelt Use: always Assistive Devices: None Review of Systems All systems reviewed & are unremarkable except as noted in HPI & below Physical Exam Constitutional: WD/WN, vitals as above Psychiatric: A+Ox3, euthymic affect Code Status & VTE Plan VTE Prophylaxis Plan VTE Prophylaxis will be ordered: No Coding Level of Care Code 51136 INT INP/OBS CARE 40MIN Diagnoses Precipitate labor, with delivery O62.3
--- NOTE | 2024-09-02 05:00 | Delivery Summary ---
Vaginal Delivery Summary Date of Service September 02, 2024 Vaginal Delivery Summary [facility] Patient presented to labor and delivery after 30 minutes of regular contractions which woke her from sleep. Per nurses exam she was 8 cm upon arrival in L&D at 4:10 am. Water had ruptured at 3:50 AM for clear fluid. She rapidly went to full dilation with the urge to push. She was able to make it into the bed in the knee-chest position prior to delivering the head with support of the perineum. With The following push, the shoulders were delivered without difficulty. The was vigorous, crying, and moving all 4 limbs. Because the patient was still in knee-chest position and to make it easier to get to a more comfortable position, the cord was clamped and cut prior to 1 minute. Cord blood was obtained, and with fundal massage, the placenta was expressed intact with a three-vessel cord. IM Pitocin and fundal massage were implemented to control bleeding. Perineum was noted to be intact except for 2 very superficial abrasions. They were hemostatic and therefore not repaired. Mother and were doing well post delivery. QBL was 41 cc. [facility] Vaginal Delivery Charge Delivery Type Details: [facility]
[2024-09-02] MEDS ORDERED: SODIUM CHLORIDE 0.9% 50 ML IV PRN (05:18)
[2024-09-02] MEDS ORDERED: SODIUM CHLORIDE 0.9% 100 ML IV PRN (05:18)
[2024-09-02] MEDS: OXYTOCIN 30 UNITS/NSS 30 UNITS/500 ML BAG IV PRN (05:27)
[2024-09-02 05:28] LABS: Hematocrit (blood only) 36.7 % (37.0-47.0); Hemoglobin 12.6 g/dl (12.0-16.0); Mean Corpuscular Hemoglobin 32.2 pg (25.0-34.0); Mean Corpuscular Hgb Conc 34.3 g/dL (32.0-36.0); Mean Corpuscular Volume 93.9 fL (80.0-100.0); Mean Platelet Volume 10.3 fL (9.4-12.4); Platelet Count 233 K/uL (130-400); RDW Coefficient of Variation 12.3 % (11.5-14.5); RDW Standard Deviation 41.6 fL (36.4-46.3); Red Blood Count 3.91 M/uL (4.20-5.40); White Blood Count 8.37 K/ul (4.8-10.8)
[2024-09-02] MEDS: DIPHTHER/TETAN/PERTUS Vaccine (Tdap, Adol/Adult) 0.5mL IM ONE (05:29)
[2024-09-02] MEDS: IBUPROFEN 600 MG TAB PO PRN (05:36)
[2024-09-02] MEDS: BENZOCAINE 20% SPRY 85 APPLN/85 GM CAN EXT PRN (08:11)
[2024-09-02] MEDS: PRENATAL VITAMIN 1 TAB PO SCH (08:11)
[2024-09-02] MEDS: DOCUSATE SODIUM 100 MG CAP PO SCH (08:11)
[2024-09-02] MEDS: ACETAMINOPHEN 325 MG TAB PO PRN (18:32)
[2024-09-03 03:22] VITALS: O2SAT 97
[2024-09-03 06:56] LABS: Hematocrit (blood only) 35.5 % (37.0-47.0); Hemoglobin 12.1 g/dl (12.0-16.0); Mean Corpuscular Hgb Conc 34.1 g/dL (32.0-36.0); Mean Corpuscular Volume 93.9 fL (80.0-100.0); Mean Platelet Volume 10.2 fL (9.4-12.4); Platelet Count 211 K/uL (130-400); RDW Coefficient of Variation 12.4 % (11.5-14.5); RDW Standard Deviation 42.6 fL (36.4-46.3); Red Blood Count 3.78 M/uL (4.20-5.40); White Blood Count 9.37 K/ul (4.8-10.8)
[2024-09-03 08:09] VITALS: BP 111/67; RESP 18; TEMP 97.7
[2024-09-03 08:14] VITALS: PULSE 79
--- NOTE | 2024-09-03 08:44 | Obstetrical Progress Note ---
Date of Service September 03, 2024 Assessment & Plan (1) Precipitate labor, with delivery: Eager for D/C home with incoming winter weather. Doing well with recovery, OK to leave. Subjective Ambulation: ambulating normally Voiding: no voiding problems Passing Gas:: Yes Diet Tolerance:: regular diet Lochia:: Small Feeding Type:: breast feeding Physical Exam Constitutional WD/WN, vitals as above Eyes PERRL, conjunctivae normal, anicteric sclerae Neck normal visual inspection Respiratory normal respiratory effort and able to speak in complete sentences; no respiratory distress and no labored breathing Cardiovascular Rate/Rhythm: regular rate and regular rhythm Extremities: no edema Chest (Breasts) Chest: normal inspection of chest Gastrointestinal (Abdomen) Inspection/Auscultation: abdomen normal to inspection Soft, postgravid Psychiatric A+Ox3, euthymic affect Genitourinary OB Exam Abdomen: + fundal height Fundus: + firm and + relation to umbilicus (fundus just below umbilicus); not tender Results & Data Vital Signs (Past 12 Hours) Vital Signs Temp Pulse Pulse Resp BP Pulse Ox O2 Del Method 09/03/24 08:10 97.7 F 79 74 18 111/67 97 09/03/24 07:15 97.7 F 74 18 111/67 97 Room Air 09/03/24 03:20 97.5 F L 80 16 109/66 97 Room Air 09/02/24 22:50 98.2 F 65 16 105/68 98 Room Air
[2024-09-03] MEDS ORDERED: bisacodyL 5 MG TABEC PO SCH (20:00)
== END 2024-09-03 09:25 | disposition home or self-care (01) | DRG 807 ==
LOC: 4S1 04:11 → 4E1 08:00